=== PATIENT | male | born 1985 | race Caucasian/White ===

== ENCOUNTER 2022-09-08 09:11 | Emergency (ER) | payer BC, OTHER, SELFPAY ==
[2022-09-08 09:17] VITALS: BP 131/82; PULSE 59; RESP 18; TEMP 36.8; O2SAT 100; BMI 25.1
--- NOTE | 2022-09-08 09:19 | ED_ITS ---
HPI - Wound/Laceration General Time Seen by Provider: 09:26 Date Seen: 09/08/22 Chief Complaint: Laceration/Wound Stated Complaint: right big toe laceration Time Seen by Provider: 09/08/22 09:13 Source: patient and RN notes reviewed Mode of arrival: ambulatory Limitations: no limitations History of Present Illness HPI narrative: Patient is a 37-year-old male that was playing with his dogs at home. He ran upstairs and accidentally hit his toe into the doorjamb. This caused a laceration. It is on the top of his toe. Reviewed his tetanus. He believes it is up-to-date. 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 He wants to check at home. Did review with him that he has a few days to get tetanus updated if need be. Otherwise, if he finds that his tetanus is not up-to-date once he gets home, he certainly can call us and return to get his tetanus done. Onset (ago): minute(s) Location: other (Dorsum of big toe) Patient tetanus UTD: No (05/11/1999 per records) Context: accidental Related Data Home Medications Medication Instructions Recorded Confirmed No Known Home Medications 09/08/22 09/08/22 Allergies Allergy/AdvReac Type Severity Reaction Status Date / Time No Known Drug Allergies Allergy Verified 09/08/22 09:16 Review of Systems Narrative: As per HPI PFSH PFSH Social History Smoking Status: Current every day smoker What tobacco products do you use: cigarettes Smoking packs per day: 0.5 Smoking cigarettes per day: 10.0 Years smoked: 20 Smoking pack-years: 10.00 Do you use any of these nicotine containing products: None Second hand tobacco smoke exposure: No How often do you have a drink containing alcohol: never How often do you have six or more drinks on one occasion: Never AUDIT-C Alcohol total score: 0 Non-prescribed substance use: denies use service: Yes Exam Const: Vital Signs, click to edit/add: Vital Signs - 24 hr 09/08/22 09:17 Temperature 98.3 F Pulse Rate [Apical ] 59 L Respiratory Rate 18 Blood Pressure [Ri ght Upper Arm] 131/82 Pulse Oximetry 100 Oxygen Delivery Me thod Room Air Documenting provider has reviewed patient's vital signs: yes Common normals: no apparent distress, average body habitus, oriented x3, no limitations, healthy appearing, alert and well nourished General appearance: cooperative, comfortable and well kempt Other: On the dorsum of his right big toe there is about a 1 cm superficial laceration. When he does move his toe, the edges do open and have some minimal oozing. Would recommend that we place a few stitches in this toe. Wound is just superficial, does not extend deeper. Neurovascular is intact. Neuro: Common normals: oriented x3 Sensorium/orientation: alert Psych: Appearance: well kempt Course Vital Signs Vital signs: Initial Vital Signs Temperature 98.3 F 09/08/22 09:17 Temperature Source Temporal Artery Scan 09/08/22 09:17 Pulse Rate 59 L 09/08/22 09:17 Pulse Rhythm 09/08/22 09:17 Respiratory Rate 18 09/08/22 09:17 Blood Pressure 131/82 09/08/22 09:17 Blood Pressure Mean 98 09/08/22 09:17 Blood Pressure Position Supine 09/08/22 09:17 Pulse Oximetry 100 09/08/22 09:17 Oxygen Delivery Method 09/08/22 09:17 Vital Signs Temperature 98.3 F 09/08/22 09:17 Pulse Rate 59 L 09/08/22 09:17 Respiratory Rate 18 09/08/22 09:17 Blood Pressure 131/82 09/08/22 09:17 Pulse Oximetry 100 09/08/22 09:17 Oxygen Delivery Method 09/08/22 09:17 Temperature 98.3 F 09/08/22 09:17 Pulse Rate 59 L 09/08/22 09:17 Respiratory Rate 18 09/08/22 09:17 Blood Pressure 131/82 09/08/22 09:17 Pulse Oximetry 100 09/08/22 09:17 Oxygen Delivery Method 09/08/22 09:17 Discharge Plan Discharge Clinical Impression: Laceration of toe Patient Disposition: Home, Self-Care Condition: Stable Instructions: Care For Your Stitches (ED), Laceration (ED) Additional Instructions: May shower as usual. When up or if she use are on, recommend bandaging with bacitracin to the wound. Need to schedule a clinic followup in about 1 week to assess the wound for suture removal. Please check your immunization record at home. If your tetanus has been over 10 years, contact us in you can return here today to get her tetanus updated. Watch for infection, seek re-evaluation if there is any concern. Otherwise, do recommend elevating your foot and minimizing activity until the wound is healed. Feet seem to be more prone to infection, thus, do need you to watch closely. Activity Level: Activity as Tolerated Prescriptions: No Action No Known Home Medications Stand Alone [facility] Instructions Procedures Laceration Laceration 1: Pre procedure diagnosis: Right big toe laceration Post procedure diagnosis: Same Site marking: not applicable Verification/time out: correct patient, correct site and correct procedure Name of person performing procedure: Cally Schultz Site: other (Big toe) Side (If applicable): right Size (cm): 1 Description: linear and clean Depth: simple, single layer Local Anesthetic: lidocaine 1% Amount of anesthesia used (mL): 3 Pre-repair: wound explored Skin layer closed with: other (Ethilon) Size (cm): 4-0 Number of sutures: 3 Technique: simple, interrupted Wound cleansing: soap (Done by nursing staff) Estimated blood loss (if any): none Conclusion: patient tolerated procedure
--- OUTSIDE RECORDS SUMMARY | 2022-09-08 09:46 | XMS_ITS | Clinical Summary ---
:1985 Author Organization [employer] [facility] [employer] [place] [address] Care Team Prov[facility] Provider Allergies No known active allergies Medications No known medications Active Problems Problem Noted Date Traumatic brain injury with loss of consciousness 09/15 Family History Medical History Relation Name Comments Cancer-colon Father Cancer-prostate Father Diabetes No Family History Heart attack No Family History Relation Name Status Comments Father Social History Tobacco Use Types Packs/Day Years Used Date Current Some Day Smoker Cigarettes 0.75 15 Smokeless Tobacco: Never Used Tobacco Cessation: Ready to Quit: Yes; C ounseling Given: Yes Comments: 7 cigarettes per day Alcohol Use Standard Drinks/Week Comments No 0 (1 standard drink = 0.6 oz pure alcoho l) Sex Assigned at Date Recorded Not on file Obstetrics History Last Filed Vital Signs Vital Sign Reading Time Taken Comments Blood Pressure 122/86 03/04/2022 3:53 PM CDT Pulse 63 03/04/2022 3:53 PM CDT Temperature 36.9 ??C (98.4 ??F) 03/04/2022 3:53 PM CDT Respiratory Rate 20 03/04/2022 3:53 PM CDT Oxygen Saturation 98% 03/04/2022 3:53 PM CDT Inhaled Oxygen Concentration - - Weight 91.2 kg (201 lb 1.6 oz) 03/04/2022 3:53 PM CDT Height 182.5 cm (5' 11.85) 02/20/2018 2:31 PM CDT Body Mass Index 27.39 02/20/2018 2:31 PM CDT Plan of Treatment Health Maintenance Due Date Last Done Comments Tdap 1998 Depression screening for age 12+ 1999 Hepatitis C screening for age 18-79 2005 Tetanus booster 2007 BMI (ht and wt on same day) for age 18+ 02/20/2019 02/21/20 18, 09/26/2017 COVID-19 vaccine series (2 - Booster for 02/06/2022 022 Yocasta series) Lipids for age 35-44 2022 Influenza for age 9-49 06/16/2022 Results Not on filefrom Last 3 Months Insurance Payer Benefit Plan / Subscriber ID Effective Dates Phone Addre ss Type Group WEST [id number] 2020-Present [employer] [address] [place] [phone] [employer] [id number] 2020-Present [address] [place] [address] 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
--- OUTSIDE RECORDS SUMMARY | 2022-09-08 09:47 | XMS_ITS | Continuity of Care Document ---
:1985 Author Organization [facility] Care Team Providers Name Role Phone [facility]-[place] Unavailable Unavailable Problems Combined list of problems from Department of Defense and Veterans Affairs facilities. It does not include entries that were removed or entered in error. Problem Status Onset Problem Type Date of Comments Source Date Resolution Alcohol abuse Active Condition [place] [facility] Chronic [place] back Active Condition [place] [facility] pain Active Condition [place] [facility] [facility] Chronic Active [place] [facility] stress disorder following combat Cough [facility] [place] [facility] Diffuse Active [place] myofascial pain [facility] syndrome Headache [facility] [place] [facility] Inguinal hernia, Active Condition [place] without mention [facility] of obstruction or gangrene (ICD-9-CM 550.90) Marital conflict Active [facility] [place] [facility] Neck pain [facility] [place] [facility] Pain in left knee Active Condition [place] [facility] Rash [facility] [place] [facility] Sprains and Active Condition [place] strains of knee [facility] and leg (ICD-9-CM 844.9) Tinnitus * Active Condition [place] (ICD-9-CM 388.30) [facility] Traumatic brain Active Condition [place] [facility] visit for: Inactive Condition [facility] administrative purpose visit for: Active Condition [facility] services physical separation visit: Inactive Condition [facility] ears/hearing exam for hearing conservation, treatment visit for: Active Condition [facility] services physical Central Auditory Active Condition [facility] Function Test Nonspecific Abnormal Findings visit for: Active Condition [facility] ears/hearing exam following abn hearing screening assessment of Active Condition DoD patient condition work status ankle joint Active Condition DoD stiffness ankle joint pain Active Condition DoD sensorineural Active Condition DoD hearing loss assess patient Active Condition DoD condition work-related occupational disease Preventive Active Condition COMPLETE DoD Medicine OUTSTANDING Established LABS THEN RTC Patient Checkup TO COMPLETE Adult 18-39 Years PHYSICAL, SOONER IF S/SX PRESENT, PRN, OR DIRECTED. inguinal hernia Active Condition DoD on the left visit for: ears / Inactive Condition Do D hearing exam Need For Inactive Condition DoD Vaccination Against Smallpox Vaccines Active Condition DoD Prophylactic Need review of Inactive Condition DoD immunization history backache Inactive Condition to take DoD motrin as directed and with food and muscle rub use as directed . Return to sick call or [facility]mc if pain continues or gets worse visit for: Inactive Condition DoD screening exam visit for: Inactive Condition DoD screening exam pulmonary tuberculosis Need For Inactive Condition DoD Vaccination Against Single Disease Need For Inactive Condition DoD Vaccination Against Combinations Of Diseases visit for: Inactive Condition DoD services physical accession Diagnosis: Active Diagnosis [place] ICD-10-CM Z00.00 [facility] Encntr for general adult medical exam w/o abnormal findingswith Provider Comments: Encounter for General Adult Medical Examination without Abnormal Findings Diagnosis: Active Diagnosis [place] ICD-10-CM Z63.0 [facility] Problems in relationship with spouse or partnerwith Provider Comments: Marital conflict ([facility] [id number]) Medications Combined list of outpatient medications from Department of Defense and Veterans Affairs facilities. Medications provided include 1) outpatient medications from the last 15 months, and 2) patient-reported medications. Medication Details Route Status Patient Prescription Prescription Last Ordering Order Source Instructions Expires Number Dispense Provider Date Date ACETAMINOPH TAKE ONE ORALLY ACTIVE BOYUM,ALL 06/02 / [place] 500MG TABLET AN J 2015 [facility] PRN IBUPROFEN TAKE ONE ORALLY ACTIVE TONKIN,BR 08/07/ [place] 200MG TAB TABLET IONN K 2018 [facility] PRN Allergies, Adverse Reactions, Alerts Combined list of allergies from Department of Defense and Veterans Affairs facilities. It does not include entries that were removed or entered in error. Substance Category Reaction Severity Reaction Status Date Comments S ource type Reported No Known Drug Drug active 12/31/2007 [place] in Allergies allergy allergy [place] Immunizations Combined list of available immunizations from the Department of Defense and Veterans Affairs facilities. 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 (CSL) seas onal, injectabl e Influenza, 1 [id number] 140 CSL complet Infl uenza DoD seasonal, 2011 1A Biotherapies, ed , injectable, Inc. (CSL) sea wolf, preservative injecta bl free e, preservat jere free INFLUENZA, complet [place] UNSPECIFIED 2011 ed OL IS [facility] Influenza, 1 07/30/ [id number] 140 CSL complet Influ tiffany DoD seasonal, 2010 Biotherapies, ed , injectable, Inc. (CSL) sea wolf, preservative injecta bl free e, preservat jere free typhoid Vi 1 08/03/ UNK 101 Unknown (UNK) comple t typhoid DoD capsular 2009 ed Vi polysaccharid capsul ar e vaccine polysacch aride vaccine influenza 1 08/03/ [id number] 111 Unknown (UNK) compl et influenza DoD virus 2009 ed virus vaccine, vaccine, live, live, attenuated, attenuat e for d, for intranasal intranasa use l use anthrax 7 09/20/ [id number] 24 Wyeth-Ayerst complet a nthrax DoD vaccine 2008 (WAL) ed vaccine anthrax 7 09/12/ [id number] 24 Emergent complet anthr ax DoD vaccine 2008 BioDefense ed vaccine [facility] [place] ([facility]) Novel 1 09/08/ [id number] 127 Novartis complet Novel DoD influenza-H1N 2009 1A Pharmaceutica ed influenza 1-, l Nanette. (NOV) -H1N1- 09, injectable injectabl e influenza 1 08/07/ UNK 15 Unknown (UNK) complet influenza DoD virus 2008 ed virus vaccine, vaccine, split virus split (incl. virus purified (incl. surface purified antigen)-reti surfac e red CODE antigen)- retired CODE influenza 1 08/06/ [id number] 15 Sanofi complet infl uenza DoD virus 2009 Pasteur (PMC) ed virus vaccine, vaccine, split virus split (incl. virus purified (incl. surface purified antigen)-reti surfac e red CODE antigen)- retired CODE anthrax 6 03/12/ [id number] 24 Unknown (UNK) complet anthrax DoD vaccine 2009 ed vaccine anthrax 5 10/20/ UNK 24 Emergent complet anthra x DoD vaccine 2009 BioDefense ed vaccine [facility] [place] ([facility]) TDAP complet [place] 2009 ed [facility] yellow fever 1 09/24/ 0 37 Unknown (UNK) comp let yellow DoD vaccine 2008 ed fever vaccine influenza 1 09/01/ [id number] 15 Unknown (UNK) compl et influenza DoD virus 2008 1A ed virus vaccine, vaccine, split virus split (incl. virus purified (incl. surface purified antigen)-reti surfac e red CODE antigen)- retired CODE typhoid Vi 1 06/24/ UNK 101 Unknown (UNK) comple t typhoid DoD capsular 2008 ed Vi polysaccharid capsul ar e vaccine polysacch aride vaccine tuberculin 1 11/07/ Unknown, 70770 96 [place] complet tuberculi DoD skin test; 2008 Provider (PD) ed n skin purified test; protein purified derivative protein solution, derivativ intradermal e solution, intraderm al anthrax 4 08/31/ ALVARO, JA H [id number] 24 Emergent complet a nthrax DoD vaccine 2006 BioDefense ed vaccine [facility] [place] ([facility]) influenza 1 08/09/ [id number] 111 Unknown (UNK) compl et influenza DoD virus 2006 ed virus vaccine, vaccine, live, live, attenuated, attenuat e for d, for intranasal intranasa use l use anthrax 3 03/29/ EVN850 24 Unknown (UNK) complet anthrax DoD vaccine 2006 ed vaccine anthrax 2 02/02/ MRZ092 24 Unknown (UNK) complet anthrax DoD vaccine 2006 ed vaccine hepatitis A 2 02/02/ UNK 52 Unknown (UNK) compl et hepatitis DoD vaccine, 2006 ed A adult dosage vaccine , adult dosage anthrax 1 11/23/ UAQ222 24 Emergent complet anthr ax DoD vaccine 2006 BioDefense ed vaccine [facility] [place] ([facility]) typhoid 1 11/23/ [id number] 41 Sanofi complet typhoid DoD vaccine, 2006 Pasteur (PMC) ed vac cine, parenteral, parenter a other than l, other acetone-kille than d, dried acetone-k illed, dried vaccinia 1 11/23/ [id number] 75 Wyeth-Ayerst complet vaccinia DoD (smallpox) 2006 (WAL) ed (smallpox vaccine ) vaccine hepatitis B 1 UNK 43 Unknown (UNK) Not hepatitis DoD vaccine, 2005 Given B adult dosage vaccine , adult dosage hepatitis A 1 07/27/ AHAVB10 52 SmithKline comple t hepatitis DoD vaccine, 2005 9CA (SKB) ed A adult dosage vaccine , adult dosage poliovirus 1 07/25/ ZOO18-2 10 Sanofi complet mark ioviru DoD vaccine, 2006 Pasteur (PMC) ed s inactivated vaccine, inactivat ed meningococcal 1 07/25/ [id number] 32 Sanofi complet meningoco DoD polysaccharid 2005 Pasteur (PMC) ed ccal e vaccine polysacch (MPSV4) aride vaccine (MPSV4) tetanus 1 07/25/ [id number] 115 Sanofi complet tetanu s DoD toxoid, 2005 Pasteur (PMC) ed toxo id, reduced reduced diphtheria diphtheri toxoid, and a toxoid , acellular and pertu is acellular vaccine, pertussis adsorbed vaccine, adsorbed Results Combined list of recent chemistry, hematology and other laboratory results from Department of Defense and Veterans Affairs, ranging from 15 months to all on record, depending upon the facility. Order Results Value Reference Date Interpretation Specimen Commen ts Source Name Range HEMOGLOBI HEMOGLOBIN 4.7 4.0 - 6.0 11/05 Specimen Type: BLOOD [place] A1C A1C/HEMOGLO /2021 No comment e ntered. IS [facility] BIN.TOTAL Ordering Prov ider: CURT HANKINS IN BLOOD Report Release d Date/Time: Nov 05, 2021 09:08 AM Reporting Lab: [facility] [address] [place] [address] Performing Lab: [facility] [address] [place] [address] TSH THYROTROPIN 1.10 0.35 - 11/05 Specimen Typ e: PLASMA [place] W/REFLEX [UNITS/VOLU 4.94 /2021 No comment entered. IS [facility] TO FREE ME] IN Ordering Provid er: CURT HANKINS T4 SERUM OR Report Release d Date/Time: Nov 05, 2021 09:08 AM PLASMA Reporting Lab: [facility] [address] [place] [address] Performing Lab: [facility] [address] [place] [address] VIT D 25-HYDROXYV 35 12 - 50 11/05 Specimen Typ e: SERUM [place] 25-OH,TOT ITAMIN D3 /2021 No comment e ntered. IS [facility] AL [MASS/VOLUM Ordering Pr ovider: CURT HANKINS] IN SERUM Report Rele ased Date/Time: Nov 05, 2021 09:08 AM OR PLASMA Reporting Lab : [facility] [address] [place] [address] Performing Lab: [facility] [address] [place] [address] COMPREHEN CREATININE 0.9 0.7 - 1.2 11/05 Specimen Type: PLASMA [place] SIVE [MASS/VOLUM /2021 No comment e ntered. IS [facility] METABOLIC E] IN SERUM Ordering Provider: CURT HANKINS PANEL+MG OR PLASMA Report Relea sed Date/Time: Nov 05, 2021 09:08 AM Reporting Lab: [facility] [place] [address] Performing Lab: [facility] [address] [facility] [address] COMPREHEN UREA 11 8 - 26 11/05 Specimen Type: PLASMA [place] SIVE NITROGEN /2021 No comment ente red. IS [facility] METABOLIC [MASS/VOLUM Ordering Provider: CURT HANKINS PANEL+MG E] IN SERUM Report Rel eased Date/Time: Nov 05, 2021 09:08 AM OR PLASMA Reporting Lab : [facility] [address] [facility] [address] Performing Lab: [facility] [address] [facility] [address] COMPREHEN GLUCOSE 72 74 - 100 11/05 L Specimen Type : PLASMA [place] SIVE [MASS/VOLUM /2021 No comment e ntered. IS [facility] METABOLIC E] IN SERUM Ordering Provider: CURT HANKINS PANEL+MG OR PLASMA Report Relea sed Date/Time: Nov 05, 2021 09:08 AM Reporting Lab: [facility] [place] [address] Performing Lab: [facility] [place] [address] COMPREHEN SODIUM 140 136 - 145 11/05 Specimen Typ e: PLASMA [place] SIVE [MOLES/VOLU /2021 No comment e ntered. IS [facility] METABOLIC ME] IN Ordering Prov ider: CURT HANKINS PANEL+MG SERUM OR Report Releas ed Date/Time: Nov 05, 2021 09:08 AM PLASMA Reporting Lab: [facility] [address] [place] [facility] [address] Performing Lab: [facility] [place] [address] COMPREHEN POTASSIUM 4.1 3.5 - 5.1 11/05 Specimen T ype: PLASMA [place] SIVE [MOLES/VOLU /2021 No comment e ntered. IS [facility] METABOLIC ME] IN Ordering Prov ider: CURT HANKINS PANEL+MG SERUM OR Report Releas ed Date/Time: Nov 05, 2021 09:08 AM PLASMA Reporting Lab: [facility] [place] [address] Performing Lab: [facility] [address] [place] [address] COMPREHEN CHLORIDE 102 98 - 107 11/05 Specimen Typ e: PLASMA [place] SIVE [MOLES/VOLU /2021 No comment e ntered. IS [facility] METABOLIC ME] IN Ordering Prov ider: CURT HANKINS PANEL+MG SERUM OR Report Releas ed Date/Time: Nov 05, 2021 09:08 AM PLASMA Reporting Lab: [facility] [place] [address] Performing Lab: [facility] [place] [address] COMPREHEN CARBON 29 22 - 29 11/05 Specimen Type: PLASMA [place] SIVE DIOXIDE, /2021 No comment ente red. IS [facility] METABOLIC TOTAL Ordering Prov ider: CURT HANKINS PANEL+MG [MOLES/VOLU Report Rel eased Date/Time: Nov 05, 2021 09:08 AM ME] IN Reporting Lab: [facility] SERUM OR [address] [place] [facility] [address] PLASMA Performing Lab: [facility] [place] [address] COMPREHEN CALCIUM 8.8 8.4 - 10.2 11/05 Specimen Ty pe: PLASMA [place] SIVE [MASS/VOLUM /2021 No comment e ntered. IS [facility] METABOLIC E] IN SERUM Ordering Provider: CURT HANKINS PANEL+MG OR PLASMA Report Relea sed Date/Time: Nov 05, 2021 09:08 AM Reporting Lab: [facility] [address] [place] [facility] [address] Performing Lab: [facility] [address] [facility] [address] COMPREHEN PROTEIN 6.7 6.0 - 8.3 11/05 Specimen Typ e: PLASMA [place] SIVE [MASS/VOLUM /2021 No comment e ntered. IS [facility] METABOLIC E] IN SERUM Ordering Provider: CURT HANKINS PANEL+MG OR PLASMA Report Relea sed Date/Time: Nov 05, 2021 09:08 AM Reporting Lab: [facility] [address] [place] [address] Performing Lab: [facility] [address] [place] [address] COMPREHEN ALBUMIN 4.2 3.5 - 5.2 11/05 Specimen Typ e: PLASMA [place] SIVE [MASS/VOLUM /2021 No comment e ntered. IS [facility] METABOLIC E] IN SERUM Ordering Provider: CURT HANKINS PANEL+MG OR PLASMA Report Relea sed Date/Time: Nov 05, 2021 09:08 AM Reporting Lab: [facility] [address] [place] [address] Performing Lab: [facility] [address] [place] [address] COMPREHEN BILIRUBIN.T 0.8 0.2 - 1.2 11/05 Specimen Type: PLASMA [place] SIVE OTAL /2021 No comment enter ed. IS [facility] METABOLIC [MASS/VOLUM Ordering Provider: CURT HANKINS PANEL+MG E] IN SERUM Report Rel eased Date/Time: Nov 05, 2021 09:08 AM OR PLASMA Reporting Lab : [facility] [address] [place] [facility] [address] Performing Lab: [facility] [place] [address] COMPREHEN MAGNESIUM 2.0 1.6 - 2.6 11/05 Specimen T ype: PLASMA [place] SIVE [MASS/VOLUM /2021 No comment e ntered. IS [facility] METABOLIC E] IN SERUM Ordering Provider: CURT HANKINS PANEL+MG OR PLASMA Report Relea sed Date/Time: Nov 05, 2021 09:08 AM Reporting Lab: [facility] [place] [address] Performing Lab: [facility] [place] [address] COMPREHEN ANION GAP 9 5 - 15 11/05 Specimen Typ e: PLASMA [place] SIVE IN SERUM OR /2021 No comment e ntered. IS [facility] METABOLIC PLASMA Ordering Prov ider: CURT HANKINS PANEL+MG Report Release d Date/Time: Nov 05, 2021 09:08 AM Reporting Lab: [facility] [place] [address] Performing Lab: [facility] [place] [address] COMPREHEN ALKALINE 65 40 - 150 11/05 Specimen Typ e: PLASMA [place] SIVE PHOSPHATASE /2021 No comment e ntered. IS [facility] METABOLIC [ENZYMATIC Ordering P rovider: CURT HANKINS PANEL+MG ACTIVITY/VO Report Rel eased Date/Time: Nov 05, 2021 09:08 AM LUME] IN Reporting Lab: [facility] SERUM OR [address] [facility] [address] PLASMA Performing Lab: [facility] [address] [place] [facility] [address] COMPREHEN ALANINE 13 <55 - 55 11/05 Specimen Type : PLASMA [place] SIVE AMINOTRANSF /2021 No comment e ntered. IS [facility] METABOLIC ERASE Ordering Prov ider: CURT HANKINS PANEL+MG [ENZYMATIC Report Rele ased Date/Time: Nov 05, 2021 09:08 AM ACTIVITY/VO Reporting L ab: [facility] LUME] IN [address] [place] [facility] [address] SERUM OR Performing Lab : [facility] PLASMA [address] [place] [facility] [address] COMPREHEN ASPARTATE 15 <34 - 34 11/05 Specimen Ty pe: PLASMA [place] SIVE AMINOTRANSF /2021 No comment e ntered. IS [facility] METABOLIC ERASE Ordering Prov ider: CURT HANKINS PANEL+MG [ENZYMATIC Report Rele ased Date/Time: Nov 05, 2021 09:08 AM ACTIVITY/VO Reporting L ab: [facility] [place]] IN [address] [facility] [address] SERUM OR Performing Lab : [facility] PLASMA [place] [address] COMPREHEN GLOMERULAR 97 60 11/05 Specimen Ty pe: PLASMA [place] SIVE FILTRATION /2021 No comment en tered. IS [facility] METABOLIC RATE/1.73 Ordering Pr ovider: CURT HANKINS PANEL+MG SQ Report Release d Date/Time: Nov 05, 2021 09:08 AM M.PREDICTED Reporting L ab: [facility] [VOLUME [address] [place] [facility] [address] RATE/AREA] Performing L ab: [facility] IN SERUM, [address] [facility] [address] PLASMA OR BLOOD BY CREATININE- BASED FORMULA (CKD-EPI) Vital Signs Combined list of inpatient and outpatient Vital Signs from Department of Defense and Veterans Affairs, ranging from 12 months to all on record, depending upon the facility. Vital Sign Value Date Comments Source SYSTOLIC BLOOD PRESSURE 133 11/05/2021 08:18:03 [facility] DIASTOLIC BLOOD PRESSURE 84 11/05/2021 08:18:03 [facility] PULSE OXIMETRY 98% 11/05/2021 08:18:03 [place] [facility] WEIGHT 202.2 11/05/2021 08:18:03 [place] [facility] BMI 27kg/m2 11/05/2021 08:18:03 [place] [facility] PAIN 8 11/05/2021 08:18:03 [facility] [facility] HEIGHT 72 11/05/2021 08:18:03 [place] [facility] TEMPERATURE 98.2 11/05/2021 08:18:03 [place] [facility] PULSE 64 11/05/2021 08:18:03 [place] [facility] RESPIRATION 16 11/05/2021 08:18:03 [place] [facility] Encounters Combined list of: 1) Encounters from Department of Veterans Affairs facilities going back up to the last 18 months. 2) Encounters from the Department of Defense facilities going back up to 280 months. Location Location Encounter Encounter Reason Attending ADM DC Stat us Disposition Source Details Type Number For Provider Date Date Visit OUTPATIENT [id number] JP, 07/25 Relea sed w/o Elton POWELL Limitations [place] Optomet [place]) OUTPATIENT [id number] [facility], 07/27 Release d w/o Elton ALEKS Limitations [place] ) OUTPATIENT [id number] [facility], 11/10 Released w/o Elton back LIN D. /2006 Limitations MIHAELA, pain MANAN [address]([facility]- [facility]) OUTPATIENT [id number] IN-PROC PARESH, 11/23 Releas ed w/o [facility] HERIBERTO SANTOS C Limitations MEME AN D NILDA -PYONGT AEK(C ) OUTPATIENT [id number] IMMUN BEQUILLARD 03/29 Relea sed w/o ACH JOSE LAWSON J Limitations MEME AN D NILDA -PYONGT AEK(Imm unizati ons [place] ) OUTPATIENT [id number] Hearing BEQUILLARD 07/11 Rel eased w/o [facility] test , JOSE Limitations MEME AN D NILDA -PYONGT AEK(Hea ring Program [place] ) OUTPATIENT [id number] ppd BEQUILLARD 08/08 Relea sed w/o [facility] , JOSE Fong Limitations MEME AN D NILDA -PYONGT AEK(Imm unizati ons [place] ) OUTPATIENT [id number] flu COSME, 08/09 Released w/o ACH LALO Limitations SOFIE D PANFILO NILDA -PYONGT AEK(Imm unizati ons [place] ) OUTPATIENT [id number] sick BEQUILLARD 08/27 Relea sed w/o [facility] call; , JOSE Limitations MEME AN D NILDA -PYONGT AEK([facility] C01A YHC) OUTPATIENT [id number] part 2 MED, 08/31 Release d w/o ACH BALTAZAR /2007 Limitations SOFIE D NILDA -PYONGT AEK(AMH C01A YHC) OUTPATIENT [id number] anx COSME, 08/31 Released w/o ACH LALO Limitations SOFIE D PANFILO NILDA -PYONGT AEK(Imm unizati ons [place]ongsan ) OUTPATIENT [id number] ppd STRAYVE, 11/07 Release d w/o ACH ANUSHA Limitations SOFIE D NILDA -PYONGT AEK(Imm unizati ons Yongsan ) OUTPATIENT [id number] full ROBINNETTE 07/17 Relea sed w/o ELTON Blum B Limitations [facility] h-2, Medical [phone] [place] -8323 [place], [place](Hear ing Conserv ation Audiolo gy) OUTPATIENT [id number] ROBINNETTE 07/17 Relea sed w/o ELTON Farr Limitations [place](Hear ing Conserv ation Audiolo gy) OUTPATIENT [id number] MEDVERE, 11/08 Release d w/o Kenneth Olivarez Limitations [place]([facility]) OUTPATIENT [id number] CATIE, 11/08 Release d w/o Kenneth YADAV Limitations [place](Aziza gency Room) OUTPATIENT [id number] 10/06 Released w /o Theater /2008 Limitations Facilit y TELE [id number] RMB/CB1 ANDREA, 07/[address] maryam [place] report Medical from a Center [facility] carrie [place](Monr scanned oe-Fami in [facility] clinica Clinic) l notes. OUTPATIENT [id number] WALK IN [facility], 08/17 Release d w/o Kenneth RAYA K Limitations [place](Hear ing Conserv ation Tech) OUTPATIENT [id number] F/U DEGRACIA, 08/23 Releas ed w/o Kenneth FAUST Limitations [place](Hear ing Conserv ation Tech) OUTPATIENT [id number] H-2/H-3 FULBRIGHT, 10/22 Rel eased w/o Kenneth Polanco ON IDALMIS N Limitations [facility] SCREENI [place], [place](Hear ing Conserv ation Audiolo gy) OUTPATIENT [id number] ETS STEEN, 11/23 Release d w/o Kenneth Polanco PHYSICA SATYA J Limitations [place]([facility] Physica l Exam Clinic) OUTPATIENT [id number] PRE/TST HUGH-CATARINA 12/03 Rel eased w/o Kenneth ELIZONDO, Limitations [facility] JOSEPH I [place]([facility] Hearing Conserv ation) OUTPATIENT [id number] PT ANDREA, 12/09 Released w /o Kenneth TOWNSEND Limitations [facility] PART II Medical ETS;SM/ Center PACKET; [facility] UNIF,RE [place], CORDS;2 [place](Monr -8 oe-Heal th Clinic) OUTPATIENT [id number] Notes TIMI, 12/07 Released w/o Elton HIGUERA O Limitations [facility] , by: Jose Galaviz,JANUARY , ([facility] Nov [id number] Respec) [phone] ------- ------- ------- ------- -- [facility] [id number] Notes SOUMYA, 05/30 Releas ed w/o [place] Entered KAYLEE Limitations AC H by: Jose ANTIONETTECONNOR Banerjee, ,KASEY DEL RIO( [place] May at [address] [place] [address]) ------- ------- ------- ------- -- VISION, HEIGHT, WEIGHT Outpatient [id number] / [place] En[place] [id number] [facility] Outpatient [id number] 03/23 [place] Encounter [id number] /2020 [facility] Outpatient 31379-5.61 LISA,RAC 03/31 [place] Encounter [id number] [facility] [place] [address]-6.61 Diagnos UROSEVIC,S 04/01 [place] 45 MINUTES [id number] is: NEZANA SPENSER S [facility] ICD-10- [facility] CM Z63.0 Problem s in relatio nship with spouse or partner
wi th Provide r Comment s: Marital conflic t (SCT [id number]) Outpatient [id number] 04/05 [place] Encounter [id number] /2020 [facility] Outpatient [id number] 04/13 [place] Encounter [id number] /2020 [facility] Outpatient [id number] 04/20 [place] Encounter [id number] /2020 [facility] Outpatient [id number] 08/16 [place] Encounter [id number] /2020 [facility] Outpatient [id number] 09/14 [place] Encounter [id number] /2020 [facility] Outpatient [id number] 09/22 [place] Encounter [id number] /2020 [facility] Outpatient 48737-2.61 ULISES NORMAN 11/04 [place] Encounter [id number] OLE [facility] OFFICE O/P [id number] Diagnos PATRICK HANKINS 11/05 [place] EST MOD [id number] is: H [facility] 30-39 [facility] ICD-10- HCS CM Z00.00 Encntr for general adult medical exam w/o abnorma l finding s
w ith Provide r Comment s: Encount er for General Adult Medical Examina tion without Abnorma l Finding s Procedures Combined list of: 1) Procedures from Department of Veterans Affairs facilities going back up to the last 18 months, not all VA non-surgical procedures are included; 2) All procedures from the Department of Defense facilities. Procedure Procedure Type Code Date Perfomer Comments Sour e Threshold Audiogram Threshold Audiogram 79284 SOUMYA [facility] (Pure Tone) (Pure Tone) 014 KAYLEE A Visual Function Visual Function 78793 DOOLEY [facility] Screening Screening 014 KAYLEE A [facility]ometry Group [facility] Group [address] [facility] Testing Testing 011 Z, JOSEPH I Intravenous Catheter Intravenous Catheter 73433 [facility] Placement Placement 011 SATYA [place] [address] [facility] Visual Acuity, Visual Acuity, 011 SATYA J Quantitative, Quantitative, Bilateral Bilateral Comprehensive Comprehensive 73707 ARELISBRIGHT, D oD Audiometry Audiometry 011 IDALMIS N Tympanometry With Tympanometry With 09744 [facility] Reflex Threshold Reflex Threshold 011 IDALMIS N Measurements Measurements Audiometry Group Audi[facility] 83009 [facility] Testing Testing 010 K [facility] 53942 [facility] DoD Testing Testing 010 K Acoustic Reflex BULMARO, Do D Testing 008 ELTON Sherman Tympanometry Tympanometry 98380 BULMARO, Do D 008 ELTON Sherman Comprehensive Comprehensive 09975 BULMARO, Ernie Audiometry Audiometry 008 ELTON Sherman Skin Test Anergy Skin Test Anergy 44750 [facility], DoD Tuberculin Tuberculin 008 ANUSHA Fong Intradermal Intradermal Immunization Immunization 11651 [facility], [facility] Administration By Administration By 008 ANUSHA Fong Injection, One Injection, One Vaccine Vaccine Routine [place] [address] MED [facility] Microscopic Exam Microscopic Exam 007 GABBY Phan Physician Supervised CACHORRO JOHN [facility] Injection 007 Subcutaneous Anthrax Vaccine, For CACHORRO JOHN [facility] Subcutaneous Use 007 Immunization Immunization 62083 CACHORRO JOHN Administration By Administration By 007 Injection, One Injection, One Vaccine Vaccine Immunization Admin Immunization Admin 80378 GAY NICK [facility] By Intranasal / Oral By Intranasal / Oral 007 J Route One Vaccine Route One Vaccine Immunization Admin Immunization Admin 84327 [facility] / Oral By Intranasal / Oral 007 DONNIELL E Y Route One Vaccine Route One Vaccine [facility]ization [facility] 41980 [facility] By Administration By 007 DONNIELLE Y Injection, One Injection, One Vaccine Vaccine Threshold Audiogram Threshold Audiogram 36100 VINCENT Murdock [facility] (Pure Tone) (Pure Tone) 007 BENI Jean Baptiste [facility] Group 05945 SAMIR [facility] Testing Testing 007 BENI Jean Baptiste Physician Supervised CACHORRO JOHN Injection 007 Subcutaneous Anthrax Vaccine, For CACHORRO JOHN [facility] Subcutaneous Use 007 Immunization Immunization 73419 CACHORRO JOHN Administration By Administration By 007 Injection, One Injection, One Vaccine Vaccine Anthrax Vaccine, For [place], SERGIO LOYOLA [facility] Subcutaneous Use 007 [place] [address] [place], SERGIO Klein Capsular Capsular 007 Polysaccharide, For Polysaccharide, For Intramus Use Intramus Use Immunization Immunization 53996 [place], SERGIO LOYOLA [place] - [facility] Administration By Administration By 007 3 JA BS Injection, One Injection, One Vaccine Vaccine Vaccines Viral Vaccines Viral 33341 Ernie COWAN Polio, Inactivated Polio, Inactivated 006 ALEKS Meningococcal Meningococcal 22322 CHAPO, Do D Polysaccharide Polysaccharide 006 ALEKS Vaccine Vaccine Immunization Immunization 39083 [facility], [facility] Administration By Administration By 006 ALEKS Injection, One Injection, One Vaccine Vaccine Skin Test Anergy Skin Test Anergy 34684 [facility] Tuberculin Tuberculin 006 ALEKS Intradermal Intradermal Physician Supervised [facility], [facility] Injection 006 ALEKS Subcutaneous Tdap Vaccine Tdap Vaccine 33554 [facility], [facility] 006 ALEKS Hep[place] [address] [facility], [facility] Hepatitis B Hepatitis B 006 ALEKS (Intramuscular Use) (Intramuscular Use) Adult Dosage Adult Dosage Immunization [facility] Administration By 006 ALEKS Injection, Each Additional Vaccine Venipuncture Venipuncture 10132 [facility], [facility] 006 [place] [address] JP, [facility] Refractive State Refractive State 006 SHERRY GLENBROOK [place] [address] [facility] R, [facility] Patient Start Patient Start 006 SHERRY Intermediate Level Intermediate Level [facility] PURE TONE AUDIOMETRY [facility] (THRESHOLD); AIR 014 ONLY MENINGOCOCCAL [facility] POLYSACCHARIDE 006 VACCINE, SEROGROUPS A, C, Y, W-135, QUADRIVALENT (MPSV4), FOR SUBCUTANEOUS USE PHYS/OTH QUALIFIED D oD HEALTH CARE 006 PROFESSIONAL QUALIFIED,EDUCATION, TRAIN,LICENSURE/REGU LATION (WHEN APPLICABLE) EDUC SER RENDERED TO PATS IN A GRP SETTING (EG,,OBESITY ,OR DIABETIC INSTRUCT) DETERMINATION OF [facility] REFRACTIVE STATE 006 SKIN TEST; DoD TUBERCULOSIS, 008 INTRADERMAL THERAPEUTIC, DoD PROPHYLACTIC OR 007 DIAGNOSTIC INJECTION (SPECIFY SUBSTANCE OR DRUG); SUBCUTANEOUS OR INTRAMUSCULAR URINALYSIS, BY DIP D oD STICK OR TABLET 007 REAGENT FOR BILIRUBIN, GLUCOSE, HEMOGLOBIN, KETONES, LEUKOCYTES, NITRITE, PH, PROTEIN, SPEC GRAVITY, UROBILINOGEN, ANY NUMBER OF CONSTITUENTS; WITH MICROSCOPY IMMUNIZATION DoD ADMINISTRATION BY 007 INTRANASAL OR ORAL ROUTE; 1 VACCINE (SINGLE OR COMBINATION VACCINE/TOXOID) IMMUNIZATION DoD ADMINISTRATION BY 007 INTRANASAL OR ORAL ROUTE; 1 VACCINE (SINGLE OR COMBINATION VACCINE/TOXOID) AUDIOMETRIC TESTING DoD OF GROUPS 007 THERAPEUTIC, DoD PROPHYLACTIC OR 007 DIAGNOSTIC INJECTION (SPECIFY SUBSTANCE OR DRUG); SUBCUTANEOUS OR INTRAMUSCULAR TYPHOID VACCINE, [facility] CAPSULAR 007 POLYSACCHARIDE (VICPS), FOR INTRAMUSCULAR USE AUDIOMETRIC TESTING DoD OF GROUPS 011 SCREENING TEST OF Do D VISUAL ACUITY, 011 QUANTITATIVE, BILATERAL TYMPANOMETRY AND DoD REFLEX THRESHOLD 011 MEASUREMENTS AUDIOMETRIC TESTING DoD OF GROUPS 010 AUDIOMETRIC TESTING DoD OF GROUPS 010 SKIN TEST; DoD TUBERCULOSIS, 010 INTRADERMAL COLLECTION OF VENOUS DoD BLOOD BY 010 VENIPUNCTURE AUDIOMETRIC TESTING DoD OF GROUPS 010 SCREENING TEST OF Do D VISUAL ACUITY, 009 QUANTITATIVE, BILATERAL SKIN TEST; DoD TUBERCULOSIS, 009 INTRADERMAL ACOUSTIC REFLEX DoD TESTING, THRESHOLD 008 AUDIOMETRIC TESTING DoD OF GROUPS 008 AUDIOMETRIC TESTING DoD OF GROUPS 008 AUDIOMETRIC TESTING DoD OF GROUPS 008 Social History Combined list of available smoking, tobacco, and other social history from 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 Social History Type Response Date Comment Source Tobacco smoking status VA-TOBACCO USER EVERY 11/04/2021 [facility] History of tobacco use [place]-TOBACCO DOESNT USE 11/04/2021 [facility] [place] 30 MIN [place] History of tobacco use VA-TOBACCO USE GALLERY INTERN 07/03/2019 [facility] NO History of tobacco use CURRENT TOBACCO USER 06/02/2016 [facility] History of tobacco use CURRENT TOBACCO USER 05/27/2013 [facility] History of tobacco use CURRENT TOBACCO USER 08/16/2012 [facility] This section is an DoD empty social history section.
--- OUTSIDE RECORDS SUMMARY | 2022-09-08 09:47 | XMS_ITS | Encounter Summary ---
:1985 Author Organization Department [facility] rs Address [address] [place] [address] Support Name Relationship Address Phone IRON FERNANDEZ Unavailable [address] [place] [address] UNAJOHN TATE Ajit Unavailable [address] [place] [address] Insurance Providers: All historical and current Section Date Range: From patient's date of to the date document was created.This section includes the names of all active insurance providers for the patient. Insurance Type of Plan Start of End of Group Member Insurance Policy P atient's Provider Coverage Name Policy Policy Number ID Provider's Hurtado's Relationship Coverage Coverage Telephone Name to Policy Number [place] PREFERRED [place] Aug 16, [id number] THOLE,DUS PATIENT PROVIDER SOTA 2020 3 [id number] [phone] TIN ORGANIZAT LABOR ION (PPO) ERS H [place] PREFERRED [place] Aug 16, [id number] THOLE,DUS PATIENT PROVIDER [place] 2020 3 [id number] [phone] TIN ORGANIZAT LABOR ION (PPO) ERS H BENECARD PRESCRIPT [place] Aug 16 [id number] [phone] THOLE ,DUS PATIENT PBF RX ION LABOR 2020 [id number] TIN ERS RX Selected Encounter This section includes the information on record at [place] for the Encounter. Date/Time Encounter Type Encounter Description Reason Provider Source Sep 14, 2021 08:41 Outpatient Encounter TELEPHONE TRIAGE AM IHE Encounter Template Text not used by [place] Plan of Treatment: Future Appointments (+ 6 months) and Future Tests (+/- 45 days) The Plan of Treatment section includes future care activities for the patient from all VA treatmentfacilities. This section includes future appointments and future orders which are active, pending orscheduled.Future Appointments This section includes appointments that were scheduled to occur 6 months from the date of the Encounter, up to a maximum of 20 appointments. The data comes from all [place] treatment facilities. Appointment Date/Time Appointment Type Appointment Facili ty Name Nov 05, 2021 08:00 AM AMBULATORY - MEDICINE [facility] CS Nov 05, 2021 09:00 AM AMBULATORY - MEDICINE [facility] Social History: Smoking Status (Most current) and Tobacco Use (All prior to encounter date) This section includes the most current, and the historical, smoking and tobacco-related health factors from the [place] facility where the Encounter took place.Current Smoking Status This section includes the most current smoking, or tobacco-related health factor, from the [place] facility where the Encounter took place. Date/Time Current Smoking Status Comment Facility Jul 03, 2019 04:03 PM VA-TOBACCO USE SLEDGER NO [facility] Tobacco Use History This section includes a history of the smoking, or tobacco- related health factors, that were collected on or before the date of the Encounter. The data comes from the [place] facility where the Encounter took place. Date/Time Smoking Status/Tobacco Use Comment Facil it Jul 03, 2019 04:03 PM VA-TOBACCO USE > 15 LESS THAN 30 [facility] YEARS Jul 03, 2019 04:03 PM VA-TOBACCO USE ADVICE [facility] Jul 03, 2019 04:03 PM VA-TOBACCO USE SLEDGER NO [facility] Jul 03, 2019 04:03 PM VA-TOBACCO USE MED NO [facility] Jul 03, 2019 04:03 PM VA-TOBACCO USER EVERY DAY [facility] Jun 02, 2016 08:44 AM CURRENT TOBACCO USER [facility] May 27, 2013 02:52 PM CURRENT TOBACCO USER [facility] Aug 16, 2012 07:43 AM CURRENT TOBACCO USER [facility] Encounter Notes: All associated encounter notes This section contains the clinical notes associated to the Encounter. Date/Time Encounter Note(s) Provider Source Sep 14, 2021 08:41 AM REPORT OF CONTACT: JOSIAH LUGO [facility] LOCAL TITLE: PATIENT CONTACT NOTE STANDARD TITLE: REPORT OF CONTACT DATE OF NOTE: SEP 14, 2021@08:41 ENTRY DATE: SEP 14, 2021@08:41:30 AUTHOR: JOSIAH LUGO EXP COSIGNER: URGENCY: STATUS: COMPLETED Primary Care Call Center [place] scheduled new patient appointment with Juanis ISLAS 4D 11/05/21 @ 0800. Please update . TI! /es/ JOSIAH LUGO LPN VISN 23 [facility] [place] [facility] Signed: 09/14/2021 08:43 Receipt Acknowledged By: * AWAITING SIGNATURE * JHON BERMUDEZ
--- OUTSIDE RECORDS SUMMARY | 2022-09-08 09:47 | XMS_ITS | Encounter Summary ---
:1985 Author Organization Department of [facility] rs Address [address] [place] [address] Support Name Relationship Address Phone IRON FERNANDEZ Unavailable [address] [facility] [address] JOHN VYAS Unavailable [address] [place] [address] Insurance Providers: All historical and current Section [...] [place]urtado [place] PREFERRED [place] Aug 16, [id number] THOLE,DUS PATIENT PROVIDER SOTA 2020 3 [id number] [phone] TIN ORGANIZAT LABOR ION (PPO) ERS H [place] PREFERRED [place] Aug 16, [id number] THOLE,DUS PATIENT PROVIDER [place] 2020 3 [id number] [phone] TIN ORGANIZAT LABOR ION (PPO) ERS H BENECARD PRESCRIPT [place] Aug 16 [id number] [phone] THOLE ,DUS PATIENT PBF RX ION LABOR 2020 [id number] TIN ERS RX Selected Encounter This section includes the information on record at [place] for the Encounter. Date/Time Encounter Type Encounter Description Reason Provider Source Sep 22, 2021 03:30 Outpatient Encounter PRIMARY CARE/MEDICINE PM [facility] Encounter Template Text not used by [place] Plan of Treatment: Future Appointments (+ 6 [...] 20 appointments. The data comes from all [place] treatment facilities. Appointment Date/Time Appointment Type Appointment Facili ty Name Nov 05, 2021 08:00 AM AMBULATORY - MEDICINE [facility] CS Nov 05, 2021 09:00 AM AMBULATORY - MEDICINE [facility] Social History: Smoking Status (Most current) and Tobacco Use (All prior to encounter date) This section includes the most current, and the historical, smoking and tobacco-related health factors from the [place] facility where the Encounter took place.Current Smoking Status This section includes the most current smoking, or tobacco-related health factor, from the [place] facility where the Encounter took place. 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 The data comes from the [place] facility where the Encounter took place. Date/Time Smoking Status/Tobacco Use Comment [facility] it Jul 03, 2019 04:03 PM VA-TOBACCO USE > 15 LESS THAN 30 [facility] YEARS Jul 03, 2019 04:03 PM VA-TOBACCO USE ADVICE [facility] Jul 03, 2019 04:03 PM VA-TOBACCO USE MACHINERY MOVER NO [facility] Jul 03, 2019 04:03 PM VA-TOBACCO USE MED NO [facility] Jul 03, 2019 04:03 PM VA-TOBACCO USER EVERY DAY [facility] Jun 02, 2016 08:44 AM CURRENT TOBACCO USER [facility] May 27, 2013 02:52 PM CURRENT TOBACCO USER [facility] Aug 16, 2012 07:43 AM CURRENT TOBACCO USER [facility] Encounter Notes: All associated encounter notes This section contains the clinical notes associated to the Encounter. Date/Time Encounter Note(s) Provider Source Sep 08, 2021 09:21 AM REPORT OF CONTACT: DONNELL BAER [facility] LOCAL TITLE: APPOINTMENT SCHEDULING NOTE STANDARD TITLE: REPORT OF CONTACT DATE OF NOTE: SEP 08, 2021@09:21 ENTRY DATE: SEP 08, 2021@09:21:09 AUTHOR: DONNELL BAER EXP COSIGNER: URGENCY: STATUS: COMPLETED Cancellation: Spicer not seen for scheduled appointment due to: Clinic cancelled appointment. Contact: Called at: Aug Cancelled clinic appointment Sep NEW PATIENT PER TRANSIT MECHANIC/MULTIPLE CONCERNS Left message on voice mail. Phone number left for to call back: Sent letter by regular [place] mail to address on community health SUDHIR Evans [address] [place] [address] [place] [phone] Patient will need a NEW PATIENT appointment. Marjan murrieta seen in 2018. /lucho/ DONNELL BAER [employer]ED ST[employer] PITCHER Signed: 09/08/2021 09:23
--- OUTSIDE RECORDS SUMMARY | 2022-09-08 09:47 | XMS_ITS | Encounter Summary ---
:1985 Author Organization Department [facility] rs Address [address] [place] [address] Support Name Relationship Address Phone IRON FERNANDEZ Unavailable [address] [facility] [place] [address] JOHN VYAS Ajit Unavailable [address] [place] [address] Insurance Providers: All historical and current Section [...] [place] PREFERRED [place] Aug 16, [id number] THOLE,DUS PATIENT PROVIDER SOTA 2020 3 [id number] [phone] TIN ORGANIZAT LABOR ION (PPO) ERS H [place] PREFERRED [place] Aug 16, [id number] THOLE,DUS PATIENT PROVIDER SOTA 2020 3 [phone] TIN ORGANIZAT LABOR ION (PPO) ERS H BENECARD PRESCRIPT [place] Aug 16 [id number] [phone] THOLE ,DUS PATIENT PBF RX ION LABOR 2020 [id number] TIN ERS RX Selected Encounter This section includes the information on record at DC for the Encounter. Date/Time Encounter Type Encounter Reason Provider Source Description Nov 05, 2021 OFFICE O/P EST PRIMARY ICD-10-CM Z00.00 CURT HANKINS 08:00 AM MOD 30-39 MIN CARE/MEDICINE Encntr for general adult medical exam w/o abnormal findings with Provider Comments: Encounter for General Adult Medical Examination without Abnormal Findings IHE Encounter Template Text not used by [facility] Assessments - Encounter Diagnoses This section includes the primary and secondary diagnoses documented for the Encounter. Date/Time Primary/Secondary Diagnosis Name Provider Source Diagnosis Nov 15, 2021 PRIMARY Encntr for general NHIPATRICKGabriela Phan [place]EN[place]TOINE [facility] 02:18 PM adult medical exam H[facility] w/o abnormal findings Nov 15, 2021 SECONDARY Carpal tunnel NHICURT ESCALANTE LILA V A 02:18 PM syndrome, left HCS upper limb Nov 15, 2021 SECONDARY Chronic pain NHI,CURT Sylvester [place] 02:[place] PM syndrome HCS Nov 15, 2021 SECONDARY Fibromyalgia NHI,CURT Phan [place] 02:18 PM HCS Nov 15, 2021 SECONDARY Headache, NHI,CURT Sylvester [place] 02:18 PM unspecified HCS Nov 15, 2021 SECONDARY Hereditary and NHI,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, unspecified Nov 15, 2021 SECONDARY Low back pain, NHI,CURT Phan [place] 02:18 PM unspecified HCS Nov 15, 2021 SECONDARY Obstructive sleep NHICURT ESCALANTE Sylvester [place] 02:18 PM apnea (adult) HCS (pediatric) Nov 15, 2021 SECONDARY Personal history NHI,CURT Sylvester [place] 02:18 PM of traumatic brain HCS injury Nov 15, 2021 SECONDARY Post-traumatic NHI,CURT [place] 02:18 PM stress disorder, HCS unspecified Nov 15, 2021 SECONDARY Psoriasis, NHI,CURT [place] 02:18 PM unspecified HCS Nov 15, 2021 SECONDARY Tinnitus, NHI,CURT [place] 02:18 PM unspecified ear HCS Nov 15, 2021 SECONDARY Unspecified NHI,CURT Phan [place] 02:18 PM hearing loss, HCS unspecified ear Lab Results: +/- 30 days of the encounter This section includes the Chemistry and Hematology Lab Results on record with DC for the patient. Radiology Reports and Pathology Reports are provided separately, in subsequent sections.Lab Results This section contains the Chemistry/Hematology Results that were resulted 30 days before or 30 daysafter the date of the Encounter. Date/Time Source Result Type Result - Unit Interpretation Reference Range Comment Nov 05, 2021 09:29 AM [facility] HEMOGLOBIN A1C Specim en Type: BLOOD No comment enter ed. Ordering Provid er: CURT HANKINS Report Released Date/Time: Nov 05, 2021 09:08 AM Reporting Lab: [facility] [address] [facility] [address] Performing Lab: [facility] [address] [facility] [id number] HEMOGLOBIN A1C 4.7 4.0-6.0 Nov 05, 2021 09:29 AM [facility] VIT D 25-OH,TOTAL Spec imen Type: SERUM No comment enter ed. Ordering Provid er: CURT HANKINS Report Released Date/Time: Nov 05, 2021 09:08 AM Reporting Lab: [facility] [address] [facility] [id number] Performing Lab: [facility] [address] [facility] [address] VIT D 25-OH,TOTAL 35 12-50 Nov 05, 2021 09:29 [facility] TSH W/REFLEX TO FREE Spec imen Type: PLASMA AM T4 No comment enter ed. Ordering Provid er: CURT HANKINS Report Released Date/Time: Nov 05, 2021 09:08 AM Reporting Lab: [facility] [address] [facility] [address] Performing Lab: [facility] [address] [facility] [address] TSH 1.10 0.35-4.94 Nov 05, 2021 09:29 [facility] COMPREHENSIVE METABOLIC S pecimen Type: PLASMA AM PANEL+MG No comment enter ed. Ordering Provid er: CURT HANKINS Report Released Date/Time: Nov 05, 2021 09:08 AM Reporting Lab: [facility] [address] [facility] [address] Performing Lab: [facility] [address] [facility] [address] CREATININE 0.9 0.7-1.2 UREA NITROGEN 11 8-26 GLUCOSE 72 L 74-100 SODIUM 140 136-145 POTASSIUM 4.1 3.5-5.1 CHLORIDE 102 98-107 CO2 29 22-29 CALCIUM 8.8 8.4-10.2 PROTEIN,TOTAL 6.7 6.0-8.3 ALBUMIN 4.2 3.5-5.2 BILIRUBIN, TOTAL 0.8 0.2-1.2 MAGNESIUM 2.0 1.6-2.6 ANION GAP 9 5-15 ALKALINE PHOSPHATASE 65 40-150 ALT/SGPT 13 <55 AST/SGOT 15 <34 ESTIMATED GFR(eGFR) 97 >60 Vital Signs: All taken on the encounter date This section contains inpatient and outpatient Vital Signs collected on the date of the Encounter. Date/Time Temperature Pulse Blood Respiratory SP02 Pain Height Weight Augusto dy Source Pressure Rate Mass Index Nov 05, 98.2 F 64 133/84 16 /min 98 % 8 72 in .2 27 [place] 2021 08:18 /min mm[Hg] lb [facility] Social History: Smoking Status (Most current) [...] place. Date/Time Current Smoking Status Comment Facility Nov 04, 2021 02:24 PM VA-TOBACCO USER EVERY DAY [facility] Tobacco Use History This section includes a history of the smoking, or tobacco- related health factors, that were collected on or before the date of the Encounter. The data comes from the [place] facility where the Encounter took place. 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 [facility] Nov 04, 2021 02:24 PM VA-TOBACCO USE MED NO [place] [facility] Nov 04, 2021 02:24 PM VA-TOBACCO USER EVERY DAY [facility] Jul 03, 2019 04:03 PM VA-TOBACCO DOESNT USE WI 30 MIN [facility] WAKEUP Jul 03, 2019 04:03 PM VA-TOBACCO USE > 15 LESS THAN 30 [facility] YEARS Jul 03, 2019 04:03 PM VA-TOBACCO USE ADVICE [place] [facility] Jul 03, 2019 04:03 PM 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 Date/Time Encounter Note(s) Provider Source Nov 05, 2021 02:22 PM LETTERS: CURT HANKINS [facility] LOCAL TITLE: FOLLOW UP RESULTS LETTER STANDARD TITLE: LETTERS DATE OF NOTE: NOV 05, 2021@14:22 ENTRY DATE: NOV 05, 2021@14:22:53 AUTHOR: CURT HANKINS EXP COSIGNER: URGENCY: STATUS: COMPLETED [facility] [address] [place] [address] Oct SUDHIR POWELL BLAYNEDANIEL [address] [facility] [address] Dear Gibson: I am writing to inform you of the results of jennifer camg that you had done recently at the [facility]. - Electrolytes including sodium and potassium SODIUM 140 (11/05/21) (normal is 136-145) POTASSIUM 4.1 (11/05/21) (normal is 3.5-5.1) - Calcium CALCIUM 8.8 (11/05/21) (normal is 8.5-10.1) - Kidney function CREATININE 0.9 (11/05/21)(normal Male = less th an 1.2; normal Female = less than 1.0)) UREA NITROGEN 11 (11/05/21) (normal Male is 8-2 6; normal Female is 10- 20) - Blood Sugar GLUCOSE 72 L (11/05/21) (normal is 74 - 106 if fasting) - Liver function Tests AST/SGOT 15 (11/05/21) (normal 15-37) ALT/SGPT 13 (11/05/21) (normal 13-61) ALK PHOSPHATASE 65 (11/05/21) (normal 45-117) BILIRUBIN, TOTAL 0.8 (11/05/21) (normal 0.2-1.0 ) - Hemoglobin A1C (normal 4.0-6.0) Collection DT Spec HGBA1C 11/05/2021 09:29 BLOOD 4.7 Test Name Result Units Range --------- ------ ----- ----- VIT D 25-OH,TOTAL 35 ng/mL 12 - 50 Additional Comments: Your DC labs are above. Overall, they are normal . Your blood glucose (blood sugar) was mildly low, but as you didn't have a ny concerning symptoms or vitals during our visit, I would not worry. If y ou ever have periods /episodes of feeling weak/dizzy, sweaty/clammy o r unwell, please let me know. It was a pleasure to meet you today. Please call with questions. If you have any further questions or problems, juancarlos enriquez contact our nursing staff or provider at the following number: . Sincerely, CURT HANKINS MD STAFF PHYSICIAN Nov 05, 2021 08:19 AM INTERNAL MEDICINE OUTPATIENT NOTE: Ajit MENDOZA [facility] LOCAL TITLE: MEDICINE CLINIC NURSING NOTE STANDARD TITLE: INTERNAL MEDICINE OUTPATIENT NOT E DATE OF NOTE: NOV 05, 2021@08:19 ENTRY DATE: NOV 05, 2021@08:19:30 AUTHOR: ANEESH MENDOZA EXP COSIGNER: URGENCY: STATUS: COMPLETED TYPE OF VISIT: Appointment Check In Type of appointment: In-person appointment REASON FOR VISIT: Annual appointment. Patient states he is having facial and head pain. ALLERGIES: Patient has answered NKA VITAL SIGNS: Blood Pressure: 133/84 (11/05/2021 08:18) Pulse: 64 (11/05/2021 08:18) Respiration: 16 (11/05/2021 08:18) Temperature: 98.2 F [36.8 C] (11/05/2021 08:18) Weight: 202.2 lb [91.9 kg] (11/05/2021 08:18) Height: 72 in [182.9 cm] (11/05/2021 08:18) BMI: 27.5 O2 Sat: 98% (11/05/2021 08:18) Pain: 8 (11/05/2021 08:18) PAIN SCREEN: Patient is having significant pain that they wo uld like to talk to their provider about today. Pain Education Patient indicates readiness to learn and verbal izes understanding of the following: Pain assessment process, Understandi ng what pain is, Risk for pain, Timeliness of medication Has concerns/questions, advised to discuss with provider Alcohol Use Screen (AUDIT-C): Alcohol Screen: SCREEN FOR ALCOHOL (AUDIT-C) An alcohol screening test (AUDIT-C) was negativ e (score=4). 1. How often did you have a drink containing al cohol in the past year? Two to four times a month 2. How many drinks containing alcohol did you h ave on a typical day when you were drinking in the past year? Five or six drinks 3. How often did you have six or more drinks on one occasion in the past year? Never Depression Screening: Perform PHQ-2 A PHQ-2 screen was performed. The score was 0 w hich is a negative screen for depression. Over the past two weeks, how often have you bee n bothered by the following problems? 1. Little interest or pleasure in doing things Not at all 2. Feeling down, depressed, or hopeless Not at all Suicide Screen: C-SSRS Screening Sampson Suicide Severity Rating Scale (C-SSRS) screener 1. Over the past month, have you wished you wer e or wished you could go to sleep and not wake up? No 2. Over the past month, have you had any actual thoughts of killing yourself? No 3. Over the past month, have you been thinking about how you might do this? Response not required due to responses to other questions. 4. Over the past month, have you had these thou ghts and had some intention of acting on them? Response not required due to responses to other questions. 5. Over the past month, have you started to wor k out or worked out the details of how to kill yourself? Response not required due to responses to other questions. 6. If yes, at any time in the past month did yo u intend to carry out this plan? Response not required due to responses to other questions. 7. In your lifetime, have you ever done anythin g, started to do anything, or prepared to do anything to end you r life (for example, collected pills, obtained a gun, gave away valu lillian, went to the roof but didn't jump)? No 8. If YES, was this within the past 3 months? Response not required due to responses to other questions. /lucho/ ANEESH MENDOZA LPN LICENSED PRACTICAL NURSE Signed: 11/05/2021 08:21 Nov 05, 2021 08:04 AM INTERNAL MEDICINE NOTE: CURT HANKINS [facility] LOCAL TITLE: MEDICINE CLINIC NOTE STANDARD TITLE: INTERNAL MEDICINE NOTE DATE OF NOTE: NOV 05, 2021@08:04 ENTRY DATE: NOV 04, 2021@09:27:07 AUTHOR: CURT HANKINS COSIGNER: URGENCY: STATUS: COMPLETED General Internal Medicine New Patient Date:11/05/21 Assessment and Plan: 1.Chronic pain syndrome and myofascial pain synd carmen. back, neck, diffuse joints, left facial pain. has seen pain clinic. has had xrays/MRI of various locations all essentially normal. he reports SE (mood william) from meds (amitryptiline,camila) in past. -he wants to continue as is for now, but i of [facility] pain clinic (chiro has helped back pain in past) as well as [facility] - he will call if wanting these referrals. 2.left wrist pain and clinical carpal tunnel. st rngth intact, no red flags -encouraged nightly brace use, call if any wors ening or non-resolution despite this 3.chronic CORREA - h/o TBI, has been on triptans in past w/ unclear benefit. follows in TBI. no red flags today, monitor 4.h/o TBI - f/u TBI clinic as planned. Routine Health Maintenance: -psoriasis, very low burden, not active issue, l ast saw derm 2016, monitor -neuropathy, reported, but EMG normal 2015, lab w/u negative in past. monitor -Hearing loss and tinnitus - [facility] -chronic back pain - feels chiro services were h elpful in the past -LIDIA - has CPAP -PTSD - stable, declines MH services 3. HCM: - vaccines: flu refuses, PPSV23 refuses, Tdap re fuses, COVID refuses -tobacco use - since age 11, 3/4 ppd. not yet sumeet dy to quit -etoh 2-3/month -no drugs -b/l inguinal hernia surgery -h/o appendectomy -left patellar reconstruction with chronic L. kn ee pain -l. zygomatic fracture s/p repair 2009 RTC 1 year w/o labs, earlier PRN Nursing Notes reviewed. Chief Complaint:new patient visit, re-establish [facility] care. HPI: SUDHIR FERNANDEZ is a 36 year old MALE [facility] with the following concerns: 1. wondering about the covid 19 vaccine. last correa d covid 19. unvaccinated 2. TBI - follows with TBI clinic. 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 sees TBI clinic PRN 3. left hand - numbness. hasn't like taking pill s in the past, not currently taking prescription. wears the splint on the lef t wrist, wears intermittently 4. right hand - intermittent sharp pains, but no t active at this time. 5. PTSD - feels this is table. [x ] 10-point ROS completed and negative except for the above as noted in HPI or pertinent ROS. Active problems - Computerized Problem List is t he source for the followin. Inguinal hernia, without mention of obstruct ion or gangrene 2. Tinnitus * 3. Sprains and strains of knee and leg 4. Marital conflict 5. Alcohol abuse 6. Chronic low back pain 7. Headache 8. Pain in left knee 9. Rash 10. Neck pain 11. Cough 12. Chronic post-traumatic stress disorder [employer] 13. Traumatic brain injury 14. Chronic pain syndrome 15. Diffuse myofascial pain syndrome Allergies: Patient has answered NKA Active and Recently Outpatient Medicatio ns (including Supplies): Active Non-VA Medications Status 1) Non-VA ACETAMINOPHEN 500MG TAB 500MG MOUTH NEEDED ACTIVE 2) Non-VA IBUPROFEN 200MG TAB 200MG MOUTH NEE DED ACTIVE EXAM: General Appearance: pleasant, nad HEENT: no LAD, thyroid nl Cardiac: rrr. no murmur, no s3/s4 Lungs: cta b/l Abdomen: soft, ntnd, nl bowel sounds, no HSM /Pelvic: Extremities: no edema,pulses 2+ b/l MSK: SKin:no rashes, wwp Mental Status:clear Other: Data/Labs: lab letter sent Education on Treatment Plan: [ ] After Visit Summary (AVS) was provided to e patient today which includes all orders placed today including lab work, imag ing, and consults. Vital signs were reviewed with patient. Medications were rec onciled and updated medication list is included on the AVS. Lab results (if cory ilable prior to visit) were reviewed with patient. Summary of physician inst ructions was included in this summary. Patient's questions were answered and t he voiced understanding and agreement with today's plan. [ ] Patient's medication-related questions were specifically addressed and /caregiver voices understanding. Patient was sent to pharmacy for further reinforcement (if needed). [ ] Patient unable to participate in learning/in struction today. Patient's caregiver/surrogate was instructed and agrees wi th the plan today. All questions were answered. /lucho/ CURT HANKINS MD STAFF PHYSICIAN Signed: 11/05/2021 15:25 Nov 05, 2021 07:48 AM ADVANCE DIRECTIVE[facility] TITLE: AD NOTIFICATION AND SCREENING STANDARD TITLE: ADVANCE DIRECTIVE DATE OF NOTE: NOV 05, 2021@07:48 ENTRY DATE: NOV 05, 2021@07:48:43 AUTHOR: MIRA LEWIS EXP COSIGNER: URGENCY: STATUS: COMPLETED ADVANCE DIRECTIVE NOTIFICATION: Patient was given written notification of the [facility] rights: 1. Accept or refuse any medical treatment. 2. Complete a durable power of bilingual speech therapist for [facility] care. 3. Complete a living will. ADVANCE DIRECTIVE SCREENING: Does patient have an Advance Directive? The patient does not have an Advance Directive. The patient does not wish to create an Advance Directive for health care. Comment: did not want information. /lucho/ MIRA LEWIS ADVANCED HORTICULTURE TEACHER Signed: 11/05/2021 07:49
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
== END 2022-09-08 09:55 | disposition home or self-care (01) ==
PROVIDERS: Emergency Provider Family Medicine
DX: S91.111A Laceration without foreign body of right great toe without damage to nail, initial encounter (principal); W22.8XXA Striking against or struck by other objects, initial encounter
CPT/HCPCS: 12001; 99283; J2001

== ENCOUNTER 2023-01-14 10:24 | Emergency (ER) | payer BC, OTHER, SELFPAY ==
[2023-01-14 10:30] VITALS: BP 138/78; PULSE 73; RESP 20; TEMP 36.4; O2SAT 98; BMI 25.1
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
== END 2023-01-14 11:51 | disposition home or self-care (01) ==
PROVIDERS: Emergency Provider Emergency Medicine
DX: S61.213A Laceration without foreign body of left middle finger without damage to nail, initial encounter (principal); W26.9XXA Contact with unspecified sharp object(s), initial encounter
CPT/HCPCS: 12001; 99283